=== PATIENT | female | born 1945 | race Hispanic/Latino ===

== ENCOUNTER 2020-10-14 09:57 | Outpatient (CLI) | payer MEDICARE | END 2020-10-14 09:58 | disposition home or self-care (01) | LOC: PET 09:57 | PROVIDERS: ATTEND Internal Medicine Hematology & Oncology | DX: C23 Malignant neoplasm of gallbladder (principal); Z98.890 Other specified postprocedural states | CPT/HCPCS: 78815; A9552 ==

== ENCOUNTER 2020-10-22 10:35 | Day surgery (SDC) | payer MEDICARE ==
[2020-10-21 16:47] VITALS: BMI 26.3
== END 2020-10-22 16:05 | disposition home or self-care (01) ==
LOC: SDC 10:35
PROVIDERS: ATTEND Specialist
PROC: 0JH60WZ Insertion of Totally Implantable Vascular Access Device into Chest Subcutaneous Tissue and Fascia, Open Approach (ICD-10-PCS; principal; 2020-10-22)
PROC: 02HV33Z Insertion of Infusion Device into Superior Vena Cava, Percutaneous Approach (ICD-10-PCS; 2020-10-22)
DX: C23 Malignant neoplasm of gallbladder (principal); I10 Essential (primary) hypertension; Z79.899 Other long term (current) drug therapy; Z88.8 Allergy status to other drugs, medicaments and biological substances; Z98.1 Arthrodesis status
CPT/HCPCS: 71045; 80048; 85025; 93005; 93010; C1788; J0690; J1642; J1885; J2250; J2405; J2704; J3010; S0020